=== PATIENT | female | born 1995 | race Caucasian/White ===

== ENCOUNTER 2025-01-17 14:16 | Emergency (ER) | payer OTHER, SELFPAY ==
[2025-01-17 14:17] VITALS: BP 147/85
[2025-01-17 14:32] LABS: % Basophils 0.7 % (0-2); % Eosinophils 2.6 % (0-6); % Immature Granulocytes 0.3 % (0-0.5); % Lymphocytes 13.2 % (20.5-51.1); % Monocytes 6.6 % (1.7-9.3); % Neutrophils 76.6 % (42.2-75.2); Absolute Basophils 0.1 10^3/uL (0-0.2); Absolute Eosinophils 0.3 10^3/uL (0-0.7); Absolute Lymphocytes 1.3 10^3/uL (1.2-3.4); Absolute Monocytes 0.7 10^3/uL (0.1-0.6); Absolute Neutrophils 7.7 10^3/uL (1.4-6.5); Hemoglobin 12.8 g/dL (12.0-16.0); Mean Corp Hgb Conc. 33.7 g/dL (33.0-37.0); Mean Corpuscular Hgb 28.9 pg (27.0-31.0); Mean Corpuscular Volume 85.8 fL (81.0-99.0); Mean Platelet Volume 10.8 fL (7.4-10.4); Nucleated Red Blood Cells % 0 %; Platelet Count 362 10^3/uL (130-400); Red Blood Cell Count 4.43 10^6/uL (4.20-5.40); Red Cell Dist. Width 12.7 % (11.5-14.5); White Blood Cell Count 10.1 10^3/uL (4.8-10.8)
[2025-01-17 14:45] LABS: ALT (SGPT) 14 U/L (0-35); AST (SGOT) 17 U/L (14-36); Albumin 4.2 g/dl (3.5-5.0); Alkaline Phosphatase 32 U/L (38-126); Blood Urea Nitrogen 10 mg/dl (7-17); Calcium 9.6 mg/dl (8.4-10.2); Carbon Dioxide 27 mmol/L (22-30); Chloride 108 mmol/L (98-107); Glucose 130 mg/dl (70-99); Potassium 3.9 mmol/L (3.5-5.1); Sodium 141 mmol/L (135-145); Total Bilirubin 0.3 mg/dl (0.2-1.3); Total Protein 7.5 g/dl (6.3-8.2); eGFR > 60.00
[2025-01-17 17:22] VITALS: BP 108/87
[2025-01-17 18:00] VITALS: BP 111/68
[2025-01-17 19:00] VITALS: BP 125/100
--- NOTE | 2025-01-17 19:10 | ED.GENMED ---
History of Present Illness
<Maribel Saucedo PA-C - Last Filed: 01/18/25 06:11>
General
Chief Complaint: Problems
Source: patient
Exam Limitations: none
Time Seen by Provider: 01/17/25 18:27
Nursing documentation reviewed up to this point in time: agreed with
History of Present Illness
History of Present Illness:
pt is a 29 y/o F
lmp 11/21
approx 8 weeks preg
started having bleeding 6 days ago
followed by [facility]
had beta 01/12 11,519
01/14 9919
01/16 9432
pt says that she had U/S on 01/15 showing gest sac with yolk sac measuring 6 weeks
no pole
today her bleeding picked up, soaking through pads more frequently, passing large clots, felt lightheaded and pelvic pain and then starting having chest tightness
pt feels that the bleeding has slowed siince she has been recumbent
she has minimal pain
no cp now
no lighthaededness
no h/o aneami
Past History
<Maribel Saucedo PA-C - Last Filed: 01/18/25 06:11>
Past History
ED Past Medical History: None
ED Past Surgical History: None
Social History
Tobacco: Non-smoker
Alcohol: None
Review of Systems
<Maribel Saucedo PA-C - Last Filed: 01/18/25 06:11>
Review of Systems
Allergies reviewed?: Yes
All Other Systems: Not applicable
Phy Exam
<Maribel Saucedo PA-C - Last Filed: 01/18/25 06:11>
Physical Exam
Physical Exam:
GENERAL: Alert , in no apparent distress
EYE: pupils equal and reactive
NECK: Supple
ENT: o/p clr, mmm.
CARDIAC: Regular rate and rhythm .
LUNGS: Clear breath sounds bilaterally, no acute respiratory distress, no wheezes/rales/rhonchi
: small amount of blood in vault
tiny clot
os external minimal open, not even fingertip
no tenderness
ABDOMEN: Soft, without focal tenderness, no r/g, no cvat, normal bowel sounds
NEUROLOGICAL: Alert and oriented, no focal neuro deficits
SKIN: Warm and dry, skin intact.
MUSCULOSKELETAL: No edema, well perfused. neg melany's sign
PSYCH: Normal and appropriate interaction.
Course
<Maribel Saucedo PA-C - Last Filed: 01/18/25 06:11>
Orders/Labs/Results
Orders:
Orders
01/17/25 14:21
EKG [Electrocardiogram (*1)] Urgent
Reason for Study: Chest Pain
01/17/25 14:22
EKG- Treatment ONCE
01/17/25 14:25
Beta HCG Quantitative Urgent
Is this a screen?: No
Complete Blood Count/With Diff Urgent
Comprehensive Metabolic Panel Urgent
01/17/25 18:37
US Pelvis W Transvag Combined Urgent
Reason For Exam: 8 weeks preg, vag bleeding
01/17/25 19:06
0.9% Sodium Chloride 1000 ml [Nss] 1,000 ml IV BOLUS
01/17/25 19:55
ABO [Blood Group&Type] Urgent
Abnormal Lab Results
01/17/25
14:25
MPV 10.8 H fL
(7.4-10.4)
Absolute Neuts (auto) 7.7 H 10^3/uL
(1.4-6.5)
Absolute Monos (auto) 0.7 H 10^3/uL
(0.1-0.6)
Neutrophils % 76.6 H %
(42.2-75.2)
Lymphocytes % 13.2 L %
(20.5-51.1)
Chloride 108 H mmol/L
(98-107)
Creatinine 0.5 L mg/dL
(0.6-1.0)
Glucose 130 H mg/dl
(70-99)
Alkaline Phosphatase 32 L U/L
(38-126)
01/17/25 14:25
01/17/25 14:25
Vital Signs
Initial and Last Documented VS:
Initial Vital Signs
Temp Pulse Resp BP Pulse Ox
36.9 C 91 18 147/85 98
01/17/25 14:17 01/17/25 14:17 01/17/25 14:17 01/17/25 14:17 01/17/25 14:17
Last Documented Vital Signs
Temp Pulse Resp BP Pulse Ox
36.9 C 91 26 111/60 99
01/17/25 14:17 01/17/25 22:15 01/17/25 22:15 01/17/25 20:00 01/17/25 20:30
Jtlt;Jose David Arguello PA-C - Last Filed: 01/17/25 22:12>
Orders/Labs/Results
Orders:
Orders
01/17/25 14:21
EKG [Electrocardiogram (*1)] Urgent
Reason for Study: Chest Pain
01/17/25 14:22
EKG- Treatment ONCE
01/17/25 14:25
Beta HCG Quantitative Urgent
Is this a screen?: No
Complete Blood Count/With Diff Urgent
Comprehensive Metabolic Panel Urgent
01/17/25 18:37
US Pelvis W Transvag Combined Urgent
Reason For Exam: 8 weeks preg, vag bleeding
01/17/25 19:06
0.9% Sodium Chloride 1000 ml [Nss] 1,000 ml IV BOLUS
01/17/25 19:55
ABO [Blood Group&Type] Urgent
Abnormal Lab Results
01/17/25
14:25
MPV 10.8 H fL
(7.4-10.4)
Absolute Neuts (auto) 7.7 H 10^3/uL
(1.4-6.5)
Absolute Monos (auto) 0.7 H 10^3/uL
(0.1-0.6)
Neutrophils % 76.6 H %
(42.2-75.2)
Lymphocytes % 13.2 L %
(20.5-51.1)
Chloride 108 H mmol/L
(98-107)
Creatinine 0.5 L mg/dL
(0.6-1.0)
Glucose 130 H mg/dl
(70-99)
Alkaline Phosphatase 32 L U/L
(38-126)
01/17/25 14:25
01/17/25 14:25
Vital Signs
Initial and Last Documented VS:
Initial Vital Signs
Temp Pulse Resp BP Pulse Ox
36.9 C 91 18 147/85 98
01/17/25 14:17 01/17/25 14:17 01/17/25 14:17 01/17/25 14:17 01/17/25 14:17
Last Documented Vital Signs
Temp Pulse Resp BP Pulse Ox
36.9 C 91 26 111/60 99
01/17/25 14:17 01/17/25 22:15 01/17/25 22:15 01/17/25 20:00 01/17/25 20:30
Information
Weeks gestation: N/A
Location: N/A
<Maribel Saucedo PA-C - Last Filed: 01/18/25 06:11>
MDM/Problems Addressed
Differential Diagnosis Includes:
incomplete ab, complete ab
MDM/Problems Addressed:
29 y/o F
approx 8 weeks preg
downtrending outpatient beta hcg with bleeding x 5 days
had US showing IUP last week (gest sac and yolk sac, no pole yet)
beta down to 6000 today from 9000 2 days ago
bleeding picked up
hemodynamically stable
hg 12.8
minimal bleeding on exam
pending RH and US.
signed out to [facility] pending these tests
<Jose David Arguello PA-C - Last Filed: 01/17/25 22:12>
*Critical Care Note
Total Time (30-74mins, 75-104mins- exclusive of procedures): Not Applicable
<Jose David Arguello PA-C - Last Filed: 01/17/25 22:12>
Update Note
Update Note:
Received care of patient on signout pending pelvic ultrasound. There are no products of conception noted on the ultrasound. The beta-hCG has been decreasing. Blood type is a positive. No need for RhoGAM. Notify patient of these results.
Recommend she follow-up with her aquarium specialist for which she has an appointment with in the next couple days.
ED Attending Note
<Maribel Saucedo PA-C - Last Filed: 01/18/25 06:11>
-
Portions of this chart may have been created with voice recognition software.� Occasional wrong word or��sound alike� substitutions may have occurred due to the inherent limitations of voice recognition software.
Discharge Plan
Departure
Patient Disposition: Home (Routine Discharge)
Date of Disposition: 01/17/25
Time of Disposition: 22:12
Patient with high blood pressure during this ER visit?: No
Discharge Problem:
Complete
Instructions: Miscarriage (DC)
Referrals:
Megan Gomez PA [Family Provider] -
Activity Restrictions/Additional Instructions:
Please return here for increasing pain bleeding fever or other concerning findings. Follow-up with your [facility] as planned for further evaluation
Interventions
Interventions:
*Risk Screen - Suicide Last Done: 01/17/25 14:17
*General Assessment Last Done: 01/17/25 14:17
*Neglect/Abuse Screening Last Done: 01/17/25 17:27
*ED- Fall Risk Assessment Last Done: 01/17/25 17:26
*ED COVID-19 Vaccine History Last Done: 01/17/25 17:26
*Nursing Disposition Last Done: 01/17/25 22:20
ED-Female Genitourinary Assessment Last Done: 01/17/25 19:59
Discharge Date and Time
Discharge Date/Time: 01/17/25 22:24
Print Language: ARGENTINE
[2025-01-17] MEDS: NSS 1000 IV (19:55)
[2025-01-17 20:00] VITALS: BP 111/60
== END 2025-01-17 22:24 | disposition home or self-care (01) ==
LOC: EMR 14:16
PROVIDERS: EMERGENCY PHYSICIAN Emergency Medicine; FAMILY PHYSICIAN Physician Assistant Medical
DX: O03.9 Complete or unspecified spontaneous abortion without complication (principal); Z3A.08 8 weeks gestation of pregnancy
CPT/HCPCS: 99284; 76830; 76856; 80053; 84702; 85025; 86900; 86901; 93005